=== PATIENT | male | born 1945 | race Caucasian/White ===

== ENCOUNTER 2022-05-27 21:42 | Emergency (ER) | payer MEDICARE, BC ==
[2022-05-27] MEDS ORDERED: Zofran 4 MG/2 ML VIAL IV ONE (22:17)
[2022-05-27 22:39] LABS: Absolute Neutrophil Ct (ANC) 6.34 x10^3/uL (1.4-6.9); Basophil (Absolute #) 0.08 x10^3/uL (0-0.4); Eosinophil % 10.4 % (0.00-5.0); Hematocrit 32.5 % (42-50); Hemoglobin 10.3 g/dL (12.5-18.0); Lymphocyte (Absolute #) 1.69 x10^3/uL (1.0-4.6); Lymphocytes % 17.6 % (24.0-44.0); Mean Cell Volume 97.3 fL (78-100); Mean Corpuscular Hemoglobin 30.8 pg (26-32); Mean Corpuscular Hgb Concent. 31.7 g/dL (32-36); Monocyte (Absolute #) 0.48 x10^3/uL (0.0-1.3); Neutrophil % 65.9 % (36.0-66.0); Platelet Count 369 x10^3/uL (150-450); Red Blood Count 3.34 x10^6/uL (4.1-5.6); Red Cell Distribution Width 14.7 % (11.5-14.0); White Blood Count 9.6 x10^3/uL (4.0-10.5)
--- NOTE | 2022-05-27 22:39 | ERPHSYRPT ---
- History of Present Illness Time Seen by Provider: 05/27/22 21:46 Source: patient, family Exam Limitations: no limitations Patient Subjective Stated Complaint: pt states "I had bypass surgery 2 weeks ago. I think my potassium is low. I have had diarrhea for the past 2 days." Triage Nursing Assessment: pt ambulated into the er; pt is axo x4; c/o not feeling well; pt denies pain; c/o diarrhea; denies abd pain; pt states incontinent of urine; pt is post CABG x 2 weeks; pt denies taking potassium for the past week; mucus membranes pink and moist; pt has clear heart tone; clear lung sounds; pt has a wet, hacking cough; no edema present; vitals wnl Physician History: 76 years old male with history of coronary artery disease CABG 2 weeks ago, hypertension, hyperlipidemia, diabetes mellitus presented in the ER with 2 days history of loose stool and abdominal discomfort generalized without any significant aggravating or relieving factors. Patient reports 3 episodes of loose stool in 2 days with occasional nausea. Reports feeling weak fatigued tired and thinks it is probably her potassium which is low as he had similar symptoms in the past. Denies any chest pain palpitations or shortness of breath. No lower extremity swelling. Timing/Duration: day(s) (2), resolved prior to arrival Severity: mild, moderate Modifying Factors: Improves With: nothing Associated Symptoms: abdominal pain, loss of appetite, weakness, No shortness of breath, No chest pain, No syncope, No seizure Allergies/Adverse Reactions: No Known Drug Allergies Allergy (Unverified 05/27/22 22:10) Home Medications: Aspirin EC 81 mg [Ecotrin 81 mg] 81 mg PO DAILY 05/27/22 [History] Atorvastatin Calcium [Lipitor] 20 mg PO DAILY 05/27/22 [History] Citalopram Hydrobromide 20 mg* [ceLEXa 20 MG] 20 mg PO DAILY 05/27/22 [History] Furosemide 40 mg [Lasix 40 MG] 40 mg PO DAILY 05/27/22 [History] Metformin HCl 500 mg [Glucophage 500 MG] 500 mg PO DAILY 05/27/22 [History] Metoprolol Tartrate 25 mg [Lopressor 25MG Tab] 25 mg PO BID 05/27/22 [History] Potassium Chloride Tab* [Klor Con] 20 meq PO DAILY 05/27/22 [History] clonazePAM [Clonazepam] 1 mg PO HS 05/27/22 [History] Hx Tetanus, Diphtheria Vaccination/Date Given: Yes Hx Influenza Vaccination/Date Given: Yes Hx Pneumococcal Vaccination/Date Given: No Immunizations Up to Date: Yes Travel Risk - International Travel Have you traveled outside of the country in past 3 weeks: No - Coronavirus Screening Are you exhibiting any of the following symptoms?: No Close contact with a COVID-19 positive Pt in past 14-21 Days: No - Vaccine Status Have you recieved a Covid-19 vaccination: Yes 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: [employer] - Vaccination Dates Date of 2cond Vaccination (if applicable): 04/03 - Review of Systems Constitutional: Fatigue, Weakness Eyes: No Symptoms Ears, Nose, & Throat: No Symptoms Respiratory: No Symptoms Cardiac: No Symptoms Abdominal/Gastrointestinal: Abdominal Pain, Nausea, Diarrhea Genitourinary Symptoms: No Symptoms Musculoskeletal: No Symptoms Skin: No Symptoms Neurological: No Symptoms Psychological: No Symptoms Endocrine: No Symptoms Hematologic/Lymphatic: No Symptoms Immunological/Allergic: No Symptoms - Past Medical History Pertinent Past Medical History: Yes Neurological History: No Pertinent History ENT History: Cataracts Cardiac History: High Cholesterol, Hypertension, Myocardial Infarction ([place]) Respiratory History: COPD, Sleep Apnea Endocrine Medical History: Diabetes Type II Musculoskeletal History: No Pertinent History GI Medical History: No Pertinent History, Polyps History: No Pertinent History Psycho-Social History: Anxiety, Depression Male Reproductive Disorders: No Pertinent History - Past Surgical History Past Surgical History: Yes Neuro Surgical History: No Pertinent History Cardiac: CABG Respiratory: No Pertinent History Gastrointestinal: Cholecystectomy Genitourinary: No Pertinent History Musculoskeletal: Orthopedic Surgery Male Surgical History: No Pertinent History Other Surgical History: carpal tunnel shweta, shweta elbow - Social History Smoking Status: Former smoker Exposure to second hand smoke: No Drug Use: none Patient Lives Alone: Yes (staying with sister after CABG) - Nursing Vital Signs Nursing Vital Signs: Initial Vital Signs Temperature 98.1 F 05/27/22 22:11 Pulse Rate 88 05/27/22 22:11 Respiratory Rate 16 05/27/22 22:11 Blood Pressure 101/58 05/27/22 22:11 O2 Sat by Pulse Oximetry 95 05/27/22 22:11 Pain Scale Pain Intensity 0 - Physical Exam General Appearance: no apparent distress, alert Eye Exam: PERRL/EOMI, eyes nml inspection Ears, Nose, Throat Exam: normal ENT inspection Neck Exam: normal inspection, supple, full range of motion Respiratory Exam: normal breath sounds, lungs clear Cardiovascular Exam: regular rate/rhythm, normal heart sounds Gastrointestinal/Abdomen Exam: soft, normal bowel sounds, tenderness (Minimal generalized tenderness without guarding or rebound tenderness) Extremity Exam: normal inspection, normal range of motion Neurologic Exam: alert, oriented x 3, cooperative Skin Exam: normal color SpO2 Interpretation: normal SpO2: 95 O2 Delivery: Room Air - Course EKG Interpreted by Me: RATE ([id number]), Sinus Rhythm, NORMAL AXIS, prolonged QT inter sunshine, Right Bundle Branch Block, Q-wave (Anteroseptal) Ordered Tests: Medication Summary Discontinued Medications Generic Name Dose Route Start Last Admin Trade Name Freq PRN Reason Stop Dose Admin Amoxicillin/Clavulanate Potassium Confirm 05/28/22 00:38 Amox Tr/Potassium Clavulanate 875 Mg Tablet Administered 05/28/22 00:39 Dose 875 mg .ROUTE .STK-MED ONE Sodium Chloride 500 mls @ 500 mls/hr 05/27/22 23:32 05/27/22 23:35 Sodium Chloride 0.9% 500 Ml IV 05/28/22 00:31 500 mls/hr .Q1H ONE Administration Sodium Chloride Confirm 05/27/22 23:34 Sodium Chloride 0.9% 500 Ml Administered 05/27/22 23:35 Dose 500 mls @ ud IV .STK-MED ONE Ondansetron HCl 4 mg 05/27/22 22:17 05/27/22 22:51 Ondansetron Hcl 4 Mg/2 Ml Vial IV 05/27/22 22:18 4 mg STAT ONE Administration Ondansetron HCl Confirm 05/27/22 22:51 Ondansetron Hcl 4 Mg/2 Ml Vial Administered 05/27/22 22:52 Dose 4 mg .ROUTE .STK-MED ONE Lab/Rad Data: Laboratory Result Diagrams 05/27/22 22:20 05/27/22 22:20 Laboratory Results 05/27/22 05/27/22 05/27/22 Range/Units 22:30 22:20 22:20 WBC (4.0-10.5) x10^3/uL RBC (4.1-5.6) x10^6/uL Hgb (12.5-18.0) g/dL Hct (42-50) % MCV (78-100) fL MCH (26-32) pg MCHC (32-36) g/dL RDW (11.5-14.0) % Plt Count (150-450) x10^3/uL MPV (7.5-11.0) fL Gran % (36.0-66.0) % Immature Gran % (Auto) (0.00-0.4) % Nucleat RBC Rel Count (0.00-0.1) % Eos # (Auto) (0-0.5) x10^3/uL Immature Gran # (Auto) (0.00-0.03) x10^3u/L Absolute Lymphs (auto) (1.0-4.6) x10^3/uL Absolute Monos (auto) (0.0-1.3) x10^3/uL Absolute Nucleated RBC (0.00-0.01) x10^3u/L Lymphocytes % (24.0-44.0) % Monocytes % (0.0-12.0) % Eosinophils % (0.00-5.0) % Basophils % (0.0-0.4) % Absolute Granulocytes (1.4-6.9) x10^3/uL Basophils # (0-0.4) x10^3/uL Sodium (137-145) mmol/L Potassium (3.5-5.1) mmol/L Chloride (98-107) mmol/L Carbon Dioxide (22-30) mmol/L Anion Gap (5-15) MEQ/L BUN (9-20) mg/dL Creatinine (0.66-1.25) mg/dL Estimated GFR ML/MIN Glucose (74-106) mg/dL Lactic Acid 1.5 (0.4-2.0) Calcium (8.4-10.2) mg/dL Magnesium 2.1 (1.6-2.3) mg/dL Total Bilirubin (0.2-1.3) mg/dL AST (17-59) U/L ALT (0-50) U/L Alkaline Phosphatase (38-126) U/L Troponin I < 0.012 (0.000-0.034) ng/mL NT-Pro-B Natriuret Pep 612 (0-1800) pg/mL Serum Total Protein (6.3-8.2) g/dL Albumin (3.5-5.0) g/dL Lipase (23-300) U/L Urinalys Dipstick Clnc Urine Color (YELLOW) Urine Appearance (CLEAR) Urine pH (5-6) Ur Specific Oral (1.005-1.025) POC Urine Protein Conf (Negative) Urine Ketones (NEGATIVE) Urine Nitrite (NEGATIVE) Urine Bilirubin (NEGATIVE) Urine Urobilinogen (0-1) mg/dL Urine Leukocytes (NEGATIVE) Urine WBC (Auto) (0-5) /HPF Urine RBC (Auto) (0-2) /HPF U Epithel Cells (Auto) (FEW) /HPF Urine Bacteria (Auto) (NEGATIVE) /HPF Urine RBC (0-5) Bautista/ul Urine Mucus (Auto) (NEGATIVE) /HPF Ur Culture Indicated? Urine Glucose (NEGATIVE) mg/dL 05/27/22 05/27/22 05/27/22 Range/Units 22:20 22:20 01:00 WBC 9.6 (4.0-10.5) x10^3/uL RBC 3.34 L (4.1-5.6) x10^6/uL Hgb 10.3 L (12.5-18.0) g/dL Hct 32.5 L (42-50) % MCV 97.3 (78-100) fL MCH 30.8 (26-32) pg MCHC 31.7 L (32-36) g/dL RDW 14.7 H (11.5-14.0) % Plt Count 369 (150-450) x10^3/uL MPV 9.0 (7.5-11.0) fL Gran % 65.9 (36.0-66.0) % Immature Gran % (Auto) 0.3 (0.00-0.4) % Nucleat RBC Rel Count 0.0 (0.00-0.1) % Eos # (Auto) 1.00 H (0-0.5) x10^3/uL Immature Gran # (Auto) 0.03 (0.00-0.03) x10^3u/L Absolute Lymphs (auto) 1.69 (1.0-4.6) x10^3/uL Absolute Monos (auto) 0.48 (0.0-1.3) x10^3/uL Absolute Nucleated RBC 0.00 (0.00-0.01) x10^3u/L Lymphocytes % 17.6 L (24.0-44.0) % Monocytes % 5.0 (0.0-12.0) % Eosinophils % 10.4 H (0.00-5.0) % Basophils % 0.8 (0.0-0.4) % Absolute Granulocytes 6.34 (1.4-6.9) x10^3/uL Basophils # 0.08 (0-0.4) x10^3/uL Sodium 138 (137-145) mmol/L Potassium 4.7 (3.5-5.1) mmol/L Chloride 104 (98-107) mmol/L Carbon Dioxide 27 (22-30) mmol/L Anion Gap 11.3 (5-15) MEQ/L BUN 21 H (9-20) mg/dL Creatinine 1.24 (0.66-1.25) mg/dL Estimated GFR > 60.0 ML/MIN Glucose 141 H (74-106) mg/dL Lactic Acid (0.4-2.0) Calcium 9.1 (8.4-10.2) mg/dL Magnesium (1.6-2.3) mg/dL Total Bilirubin 1.40 H (0.2-1.3) mg/dL AST 30 (17-59) U/L ALT 29 (0-50) U/L Alkaline Phosphatase 118 (38-126) U/L Troponin I (0.000-0.034) ng/mL NT-Pro-B Natriuret Pep (0-1800) pg/mL Serum Total Protein 6.7 (6.3-8.2) g/dL Albumin 3.2 L (3.5-5.0) g/dL Lipase 127 (23-300) U/L Urinalys Dipstick Clnc MAIN LAB Urine Color YELLOW (YELLOW) Urine Appearance CLEAR (CLEAR) Urine pH 5.5 (5-6) Ur Specific Oral >=1.030 (1.005-1.025) POC Urine Protein Conf NEGATIVE (Negative) Urine Ketones NEGATIVE (NEGATIVE) Urine Nitrite NEGATIVE (NEGATIVE) Urine Bilirubin NEGATIVE (NEGATIVE) Urine Urobilinogen 0.2 (0-1) mg/dL Urine Leukocytes SMALL (NEGATIVE) Urine WBC (Auto) 51-100 (0-5) /HPF Urine RBC (Auto) 0-2 (0-2) /HPF U Epithel Cells (Auto) RARE (FEW) /HPF Urine Bacteria (Auto) RARE (NEGATIVE) /HPF Urine RBC TRACE-INTACT (0-5) Bautista/ul Urine Mucus (Auto) SLIGHT (NEGATIVE) /HPF Ur Culture Indicated? YES Urine Glucose NEGATIVE (NEGATIVE) mg/dL - Departure Referrals: VALENTINO RASMUSSEN MD [Primary Care Provider] - Follow up/PCP as directed
[2022-05-27] MEDS ORDERED: Zofran 4 MG/2 ML VIAL ONE (22:51)
[2022-05-27 22:53] LABS: ALBUMIN 3.2 g/dL (3.5-5.0); ALKALINE PHOSPHATASE 118 U/L (38-126); ANION GAP 11.3 MEQ/L (5-15); BLOOD UREA NITROGEN 21 mg/dL (9-20); CHLORIDE 104 mmol/L (98-107); Calcium 9.1 mg/dL (8.4-10.2); Carbon Dioxide 27 mmol/L (22-30); Creatinine 1 1.24 mg/dL (0.66-1.25); EST GLOMERULAR FILTRATION RATE > 60.0 ML/MIN; Glucose 141 mg/dL (74-106); LIPASE 127 U/L (23-300); Potassium 4.7 mmol/L (3.5-5.1); SGOT/AST 30 U/L (17-59); SGPT/ALT 29 U/L (0-50); SODIUM 138 mmol/L (137-145); Total Protein 6.7 g/dL (6.3-8.2)
[2022-05-27 23:01] LABS: MAGNESIUM 2.1 mg/dL (1.6-2.3)
[2022-05-27 23:31] VITALS: BP 102/62; PULSE 89
[2022-05-27] MEDS ORDERED: Sodium Chloride 0.9% 500 ML 500 ML IV ONE ×2 (23:32→23:34)
[2022-05-27 23:34] VITALS: O2SAT 95
[2022-05-28] MEDS ORDERED: Augmentin 875-125 Tablet ONE (00:38)
[2022-05-28 02:49] LABS: Bacteria RARE /HPF (NEGATIVE); Epithelial Cells RARE /HPF (FEW); Mucus SLIGHT /HPF (NEGATIVE); RBC 0-2 /HPF (0-2); WBC 51-100 /HPF (0-5)
[2022-05-28 02:50] LABS: Appearance CLEAR (CLEAR); Bilirubin NEGATIVE (NEGATIVE); Dipstick done @ ? MAIN LAB; Glucose NEGATIVE (NEGATIVE); Ketones NEGATIVE (NEGATIVE); Nitrite NEGATIVE (NEGATIVE); Ph 5.5 (5-6); Protein,Urine Dip NEGATIVE (Negative); RBC TRACE-INTACT Ery/ul (0-5); Specific Gravity >=1.030 (1.005-1.025); Urobilinogen 0.2 mg/dL (0-1)
[2022-05-28 02:51] LABS: Urine Cultured Indicated? YES
--- NOTE | 2022-05-28 08:49 | XRAY ---
Indication: Cough and crackles. Abdomen pain and diarrhea. Multiple contiguous axial images obtained through the chest without contrast. Comparison: None Moderate left pleural effusion with mild left lower lobe compressive atelectasis. Remaining lungs demonstrates a few tiny bilateral calcified granulomas. Heart not enlarged with CABG surgery and scattered coronary calcifications. Aorta is mildly arteriosclerotic without aneurysm. Small mediastinal and bilateral hilar calcified nodes. No pathologic mediastinal lymphadenopathy. Bony thorax intact with osteopenia, flowing osteophytes throughout the spine, healing left 4-5 anterolateral rib fractures, and sternotomy wires. CT abdomen/pelvis reported separately. Impression: 1. Moderate left pleural effusion with left lower lobe compressive atelectasis. 2. Incidental scattered arteriosclerotic disease, chronic bony findings, and old granulomatous disease Comment: Preliminary interpretation made by C. No critical discrepancy.
--- NOTE | 2022-05-28 08:53 | XRAY ---
Indication: Abdomen pain and diarrhea. Multiple contiguous axial images obtained through the abdomen and pelvis without contrast. Comparison: None CT chest reported separately. Noncontrasted stomach and bowel loops appear nonobstructed. Minimal sigmoid diverticulosis without diverticulitis. Previous cholecystectomy. Tiny hepatic/splenic calcific granulomas and 7 cm right renal cyst. No free fluid/air. Urinary bladder demonstrates multiple tiny intraluminal air bubbles either iatrogenic from recent catheterization versus gas-forming bacterial infection. Remaining liver, pancreas, spleen, adrenal glands, kidneys, ureters, and bladder are unremarkable for noncontrast exam. Mild scattered aortoiliac calcifications without AAA. Osseous structures intact with osteopenia, moderate degenerative changes throughout the thoracolumbar spine, and mild bilateral hip degenerative arthropathy. Impression: 1. Urinary bladder intraluminal air bubbles either iatrogenic versus gas-forming bacterial infection. 2. Sigmoid diverticulosis without diverticulitis. 3. Chronic findings including right renal cyst, arteriosclerotic disease, chronic bony findings, and old granulomatous disease. Comment: Preliminary interpretation made by [facility]. No critical discrepancy.
== END 2022-05-28 00:52 | disposition home or self-care (01) ==
LOC: ED 21:42
DX: K52.9 Noninfective gastroenteritis and colitis, unspecified (principal); J90 Pleural effusion, not elsewhere classified; R10.9 Unspecified abdominal pain; I10 Essential (primary) hypertension; E78.5 Hyperlipidemia, unspecified; E11.9 Type 2 diabetes mellitus without complications; Z79.84 Long term (current) use of oral hypoglycemic drugs; Z79.899 Other long term (current) drug therapy
CPT/HCPCS: 36000; 36415; 71250; 74176; 80053; 81015; 83605; 83690; 83735; 83880; 84484; 85025; 87040; 87077; 87086; 87186; 93005; 96374; 96375; 99284; J2405; A9270-GY